=== PATIENT | male | born 1955 | race Caucasian/White ===

== ENCOUNTER 2022-11-27 21:33 | Day surgery (SDC) | payer MEDICARE, BC ==
[2022-11-27] MEDS ORDERED: Glucagon,Human Recombinant 1 MG Vial IVPUSH ONE (21:43)
[2022-11-27] MEDS ORDERED: Lactated Ringers 1,000 ML IV SCH ×2 (23:00→23:45)
[2022-11-27] MEDS ORDERED: fentaNYL 100 MCG/2 ML SDV ONE (23:28)
[2022-11-27] MEDS ORDERED: Succinylcholine/Sod PF 100 MG/5 ML SYRINGE IV ONE (23:28)
[2022-11-27] MEDS ORDERED: Propofol 200 MG/20 ML SDV ONE (23:28)
[2022-11-27] MEDS ORDERED: Rocuronium Bromide 50 MG/5 ML Syringe ONE (23:28)
[2022-11-27] MEDS ORDERED: Ondansetron 4 MG/2 ML SDV ONE (23:28)
[2022-11-27] MEDS ORDERED: Sugammadex Sodium 200 MG/2 ML VIAL ONE (23:30)
== END 2022-11-28 01:30 | disposition home or self-care (01) ==
LOC: MW.ED 21:33 → MW.SDS 22:47 → MW.MS 22:47 → MW.SDS 11-28 01:30
PROVIDERS: ATTEND Surgery
DX: T18.128A Food in esophagus causing other injury, initial encounter (principal); K22.2 Esophageal obstruction; K51.90 Ulcerative colitis, unspecified, without complications; I10 Essential (primary) hypertension; Z79.82 Long term (current) use of aspirin; Z79.899 Other long term (current) drug therapy; Z95.5 Presence of coronary angioplasty implant and graft
CPT/HCPCS: 43247; 96374; 99283; J0131; J0330; J1610; J2405; J2704; J3010; J3490; J7120; 99204; 99284